=== PATIENT | female | born 1955 | race Caucasian/White ===

== ENCOUNTER 2024-05-21 21:32 | Emergency (ER) | payer MEDICARE, SELFPAY ==
[2024-05-21 21:33] VITALS: BMI 23.4
[2024-05-21 21:36] VITALS: BP 167/94
[2024-05-21 22:03] LABS: % Basophils 0.4 % (0-2); % Eosinophils 0.4 % (0-6); % Immature Granulocytes 0.1 % (0-0.5); % Lymphocytes 33.3 % (20.5-51.1); % Monocytes 9.6 % (1.7-9.3); % Neutrophils 56.2 % (42.2-75.2); Absolute Lymphocytes 2.3 10^3/uL (1.2-3.4); Absolute Monocytes 0.7 10^3/uL (0.1-0.6); Absolute Neutrophils 3.9 10^3/uL (1.4-6.5); Hematocrit 41.2 % (37.0-47.0); Hemoglobin 14.4 g/dL (12.0-16.0); Mean Corpuscular Hgb 31.3 pg (27.0-31.0); Mean Corpuscular Volume 89.6 fL (81.0-99.0); Mean Platelet Volume 10.3 fL (7.4-10.4); Nucleated Red Blood Cells % 0 %; Platelet Count 199 10^3/uL (130-400); Red Cell Dist. Width 11.8 % (11.5-14.5); White Blood Cell Count 6.9 10^3/uL (4.8-10.8)
[2024-05-21 22:25] LABS: ALT (SGPT) 65 U/L (0-35); AST (SGOT) 36 U/L (14-36); Albumin 4.6 g/dl (3.5-5.0); Alkaline Phosphatase 80 U/L (38-126); Blood Urea Nitrogen 14 mg/dl (7-17); Calcium 10.5 mg/dl (8.4-10.2); Carbon Dioxide 28 mmol/L (22-30); Chloride 104 mmol/L (98-107); Glucose 112 mg/dl (70-99); Potassium 3.9 mmol/L (3.5-5.1); Sodium 139 mmol/L (135-145); Total Bilirubin 0.6 mg/dl (0.2-1.3); Total Protein 7.5 g/dl (6.3-8.2); Troponin I < 0.012 ng/ml; eGFR 55.07
[2024-05-21 23:49] VITALS: BP 178/110
[2024-05-22] VITALS: BP 185/79
[2024-05-22] MEDS: TYLENOL 1000 MG PO (00:34)
[2024-05-22] MEDS: NSS 1000 IV (00:49)
[2024-05-22 01:00] VITALS: BP 165/76
--- NOTE | 2024-05-22 01:20 | ED.GENMED ---
History of Present Illness
General
Chief Complaint: Dizziness
Source: patient and family
Exam Limitations: none
Time Seen by Provider: 05/21/24 23:51
History of Present Illness
History of Present Illness:
Sick 8-year-old female who states she woke up early this morning to go to bathroom and felt a little bit off. She went to the bathroom and on her way back continue to feel little bit dizzy. She had had a headache and some neck pain which is not
terribly uncharacteristic for her. She states that she kind of walked around trying to feel better. She woke up her daughter. Her daughter states that she then took a dose of Tylenol. She did note a headache. She states that she does
occasionally get headache and neck pain and was not sure if the symptoms are related. She states she felt like she was on the boat and had a sense of movement. Denies full room spinning. No nausea or vomiting. No recent neck injury. No recent
chiropractic work. Currently feels much less dizzy but still has a little bit of neck pain and headache. Admits that she is very fearful of hospitals due to past traumatic experience.
Past History
Past History
ED Past Medical History: Other (GERD, irritable bowel syndrome, thyroid nodules, anxiety, mitral prolapse)
ED Past Surgical History: Cholecystectomy and
Social History
Tobacco: Non-smoker
Phy Exam
Physical Exam
Physical Exam:
CONSTITUTIONAL Patient alert and oriented to person, place and time. Well-appearing. Vital signs reviewed.
HEAD atraumatic, normocephalic.
EYES eyelids normal to inspection, Extraocular muscles intact, Conjunctiva normal, Sclera normal.
NECK normal range of motion, Trachea midline, no jugular venous distention.
RESPIRATORY CHEST No respiratory distress noted, Chest expansion equal, Bilateral breath sounds clear.
CARDIOVASCULAR regular rate and rhythm, Heart sounds normal.
ABDOMEN abdomen nontender, Bowel sounds normal. No distention.
BACK normal inspection, no obvious deformities
UPPER EXTREMITY range of motion normal, Motor strength normal, no cyanosis, no edema.
LOWER EXTREMITY range of motion normal, Motor strength normal, no cyanosis, no edema.
NEURO Speech normal, No focal motor deficits, Jose coma scale 15, Memory normal, Cranial Nerves intact to screening exam. Normal [id number], normal [id number]
SKIN skin warm, dry, and normal in color.
Course
Orders/Labs/Results
Orders:
Orders
05/21/24 21:36
Electrocardiogram (*1) Urgent
Reason for Study: Chest Pain
EKG- Treatment ONCE
05/21/24 21:47
EKG [Electrocardiogram (*1)] Urgent
Reason for Study: Chest Pain
05/21/24 21:48
EKG- Treatment ONCE
05/21/24 21:56
Complete Blood Count/With Diff Urgent
Comprehensive Metabolic Panel Urgent
Troponin I Urgent
05/22/24 00:28
0.9% Sodium Chloride 1000 ml [Nss] 1,000 ml IV BOLUS
Acetaminophen [Tylenol] 1,000 mg PO NOW STA
05/22/24 00:58
CT Head W/o Iv Contrast Urgent
Comment:
Reason For Exam: dizziness, HTN
Abnormal Lab Results
05/21/24
21:56
MCH 31.3 H pg
(27.0-31.0)
Absolute Monos (auto) 0.7 H 10^3/uL
(0.1-0.6)
Monocytes % 9.6 H %
(1.7-9.3)
Creatinine 1.1 H mg/dL
(0.6-1.0)
Glucose 112 H mg/dl
(70-99)
Calcium 10.5 H mg/dl
(8.4-10.2)
ALT 65 H U/L
(0-35)
05/21/24 21:56
05/21/24 21:56
Vital Signs
Initial and Last Documented VS:
Initial Vital Signs
Temp Pulse Resp BP Pulse Ox
98 F 86 16 167/94 98
05/21/24 21:36 05/21/24 21:36 05/21/24 21:36 05/21/24 21:36 05/21/24 21:36
Last Documented Vital Signs
Temp Pulse Resp BP Pulse Ox
98 F 86 16 165/76 98
05/21/24 21:36 05/21/24 21:36 05/21/24 21:36 05/22/24 01:00 05/22/24 01:00
MDM/Problems Addressed
Differential Diagnosis Includes:
Benign positional vertigo, vestibular neuritis, vestibular migraine, central vertigo, electrolyte disturbance, CVA, vertebral dissection
MDM/Problems Addressed:
Dizziness, hypertension
*Radiology
Radiology exam reviewed: preliminary read by ED provider (No obvious intracranial hemorrhage)
*Pulse Oximetry
Patient hypoxic: no
*EKG
Interpreted by ED Provider?: Yes
Interpretation: normal
Rate: normal
Darrow: normal axis
Interval: normal interval
Ischemia: no ischemia
*Kitchen Runner Interpretation
Rate: normal
Interpretation: normal
Rhythm: sinus
*Critical Care Note
Total Time (30-74mins, 75-104mins- exclusive of procedures): Not Applicable
Data Reviewed
Source: patient and family
Further Testing Considered But Not Given:
considered CTA to r/o dissection and vascular pathology but pt refuses CTA
Patient Management
Escalation/DeEscalation of care consider admission/obs:
Patient appears well. Patient refused CTA. Her neurologic assessment is normal and she does feel better. Okay for discharge and outpatient follow-up. Neurologically she is intact. No significant risk for dissection but is little hypertensive.
Patient will return for any progressive numbness
ED Attending Note
-
Portions of this chart may have been created with voice recognition software.� Occasional wrong word or��sound alike� substitutions may have occurred due to the inherent limitations of voice recognition software.
Discharge Plan
Departure
Patient Disposition: Home (Routine Discharge)
Date of Disposition: 05/22/24
Time of Disposition: 01:50
Patient with high blood pressure during this ER visit?: Yes
Discharge Problem:
Vertigo
Instructions: Vertigo (a Type of Dizziness) (DC), BLOOD PRESSURE
Referrals:
NONE,* [Family Provider] -
Activity Restrictions/Additional Instructions:
Please see your doctor in the next 2 to 3 days for follow-up and reevaluation. Return immediately for worsening symptoms, difficulty walking, weakness of any kind, speech changes, vision changes, or any other concerns.
Your blood pressure was elevated while in the Emergency Department, please have your doctor re-evaluate it in the next 48 hours as untreated hypertension may lead to serious complications.
Interventions
Interventions:
*Risk Screen - Suicide Last Done: 05/21/24 21:36
*General Assessment Last Done: 05/22/24 00:00
*Neglect/Abuse Screening Last Done: 05/21/24 21:36
*ED COVID-19 Vaccine History Last Done: 05/22/24 00:00
ED- Neurological Assessment Last Done: 05/22/24 00:00
ED Swallowing Screen Last Done: 05/22/24 00:00
Discharge Date and Time
Print Language: HUNGARIAN
[2024-05-22 02:00] VITALS: BP 165/72
== END 2024-05-22 02:29 | disposition home or self-care (01) ==
LOC: EMR 21:32
PROVIDERS: EMERGENCY PHYSICIAN Emergency Medicine
DX: R42 Dizziness and giddiness (principal); R51.9 Headache, unspecified; K21.9 Gastro-esophageal reflux disease without esophagitis; K58.9 Irritable bowel syndrome, unspecified; I10 Essential (primary) hypertension; I34.1 Nonrheumatic mitral (valve) prolapse; Z90.49 Acquired absence of other specified parts of digestive tract
CPT/HCPCS: 99284; 96360; 70450; 80053; 84484; 85025; 93005

== ENCOUNTER 2024-07-20 11:22 | Emergency (ER) | payer MEDICARE, OTHER, SELFPAY ==
[2024-07-20 11:26] VITALS: BP 154/92
--- NOTE | 2024-07-20 12:16 | ED.GENMED ---
History of Present Illness
General
Chief Complaint: Abdominal Pain
Time Seen by Provider: 07/20/24 11:52
History of Present Illness
History of Present Illness:
Patient presents to the emergency department with epigastric abdominal pain. Symptoms started last night. Associated with multiple episodes of loose stool. No fevers or chills. Denies urinary symptoms. Denies bloody stools. denies cp or sob
Past History
Past History
ED Past Medical History: Other (GERD, irritable bowel syndrome, thyroid nodules, anxiety, mitral prolapse)
ED Past Surgical History: Cholecystectomy and
Social History
Tobacco: Non-smoker
Phy Exam
Physical Exam
Physical Exam:
GENERAL APPEARANCE: NAD, well developed/ well nourished
EYES lids/conjunctiva normal
EARS/NOSE/THROAT Mucous membranes moist, uvula midline without oral pharyngeal erythema, exudate or swelling
HEAD/NECK normocephalic atraumatic, neck is supple.
RESPIRATORY respiratory effort normal, speaks in full sentences, no accessory muscle use. Lungs clear to auscultation without rhonchi, wheezes, rales
CARDIAC Regular rate and rhythm, no edema.
ABDOMINAL prior cholecystectomy scar in right upper quadrant noted. There is no hernias. Tender in the epigastric region. Soft and nondistended
MUSCLES/EXTREMITIES No abnormal range of motion, no swelling.
SKIN Warm, pink and dry. No rashes
NEUROLOGICAL Speech is clear and appropriate. Normal level of consciousness. 5/5 strength in all extremities.
PSYCH Normal mood and affect. Judgement/competence is appropriate
Course
Orders/Labs/Results
Orders:
Orders
07/20/24 12:06
Urinalysis Reflex To Culture Urgent
Date Specimen was Collected: 07/20/24
Time Specimen was Collected: 11:37
Urine Microscopic Reflex Cult Urgent
Urine Culture Urgent
JUAN Source: U
Specimen Description:
Date Specimen was Collected: 07/20/24
Time Specimen was Collected: 11:37
07/20/24 12:16
Electrocardiogram (*1) Stat
Reason for Study: Abdominal Pain
CT Abd/pel Without Iv Or Oral Urgent
Comment:
Reason For Exam: severe epigastric pain, hx of cholecystectomy
07/20/24 12:50
Complete Blood Count/With Diff Urgent
Comprehensive Metabolic Panel Urgent
Lipase Urgent
Troponin I Urgent
Abnormal Lab Results
07/20/24 07/20/24
12:06 12:50
RBC 3.88 L 10^6/uL
(4.20-5.40)
Hct 35.9 L %
(37.0-47.0)
MCH 32.2 H pg
(27.0-31.0)
Absolute Neuts (auto) 9.4 H 10^3/uL
(1.4-6.5)
Absolute Lymphs (auto) 0.8 L 10^3/uL
(1.2-3.4)
Neutrophils % 87.4 H %
(42.2-75.2)
Lymphocytes % 7.1 L %
(20.5-51.1)
Glucose 112 H mg/dl
(70-99)
Leukocyte Esterase Rfl 1+ A
(Negative)
07/20/24 12:50
07/20/24 12:50
Vital Signs
Initial and Last Documented VS:
Initial Vital Signs
Temp Pulse Resp BP Pulse Ox
98.4 F 93 18 154/92 97
07/20/24 11:26 07/20/24 11:26 07/20/24 11:26 07/20/24 11:26 07/20/24 11:26
Last Documented Vital Signs
Temp Pulse Resp BP Pulse Ox
98.4 F 88 16 138/72 98
07/20/24 11:26 07/20/24 15:41 07/20/24 15:41 07/20/24 15:41 07/20/24 15:41
*Critical Care Note
Total Time (30-74mins, 75-104mins- exclusive of procedures): Not Applicable
ED Attending Note
ED Attending Note
ED Attending Note:
patient with centralized/r sided abdominal pain since last night. Non toxic in appearance. Differential includes pancreatitis, gastritis, appendicits, gastroenteritis. Plan for labs, CT ab/pelvis
uncomplicated diverticulitis
patient with numerous allergies unable to tolerate penicillins/cephalosporins/sulfa/quinolones
will discharge with flagyl, recommendations to follow up with GI as soon as possible
-
Portions of this chart may have been created with voice recognition software.� Occasional wrong word or��sound alike� substitutions may have occurred due to the inherent limitations of voice recognition software.
Discharge Plan
Departure
Patient Disposition: Home (Routine Discharge)
Date of Disposition: 07/20/24
Time of Disposition: 14:39
Patient with high blood pressure during this ER visit?: Yes
Discharge Problem:
Diverticulitis
Instructions: Clear Liquid Diet, Diverticulitis (DC)
Prescriptions:
New
metronidazole 500 mg tablet
500 mg PO BID 10 Days Qty: 20 0RF
Referrals:
Ameena Regalado MD [Family Provider] -
Shikha Cotto DO [Active] -
Activity Restrictions/Additional Instructions:
follow up with the network cabler as soon as possible
return to the ER with new or worsening symptoms
Interventions
Interventions:
*Risk Screen - Suicide Last Done: 07/20/24 11:26
*General Assessment Last Done: 07/20/24 11:26
*Neglect/Abuse Screening Last Done: 07/20/24 11:26
*ED- Fall Risk Assessment Last Done: 07/20/24 12:53
*ED COVID-19 Vaccine History Last Done: 07/20/24 12:53
*Nursing Disposition Last Done: 07/20/24 15:41
YR-Cowulm-Xpasibwjgh Assessment Last Done: 07/20/24 12:53
Discharge Date and Time
Discharge Date/Time: 07/20/24 15:42
Print Language: KYRGYZ
[2024-07-20 12:39] LABS: Urine Albumin Negative (Neg - Trace); Urine Bilirubin Negative (Negative); Urine Character Clear (Clear); Urine Color Yellow; Urine Glucose Negative (Negative); Urine Ketone Negative (Negative); Urine Leukocyte 1+ (Negative); Urine Nitrite Negative (Negative); Urine Occult Blood Negative (Negative); Urine Urobilinogen Negative (Neg - 1+)
[2024-07-20 12:59] LABS: Urine Red Blood Cell 0-2 /HPF (0-2)
[2024-07-20 13:04] LABS: % Basophils 0.3 % (0-2); % Immature Granulocytes 0.4 % (0-0.5); % Lymphocytes 7.1 % (20.5-51.1); % Monocytes 4.8 % (1.7-9.3); % Neutrophils 87.4 % (42.2-75.2); Absolute Lymphocytes 0.8 10^3/uL (1.2-3.4); Absolute Monocytes 0.5 10^3/uL (0.1-0.6); Absolute Neutrophils 9.4 10^3/uL (1.4-6.5); Hematocrit 35.9 % (37.0-47.0); Hemoglobin 12.5 g/dL (12.0-16.0); Mean Corp Hgb Conc. 34.8 g/dL (33.0-37.0); Mean Corpuscular Hgb 32.2 pg (27.0-31.0); Mean Corpuscular Volume 92.5 fL (81.0-99.0); Mean Platelet Volume 10.1 fL (7.4-10.4); Nucleated Red Blood Cells % 0 %; Platelet Count 194 10^3/uL (130-400); Red Blood Cell Count 3.88 10^6/uL (4.20-5.40); Red Cell Dist. Width 11.9 % (11.5-14.5); White Blood Cell Count 10.8 10^3/uL (4.8-10.8)
[2024-07-20 13:12] LABS: ALT (SGPT) 17 U/L (0-35); AST (SGOT) 22 U/L (14-36); Albumin 3.9 g/dl (3.5-5.0); Alkaline Phosphatase 62 U/L (38-126); Blood Urea Nitrogen 11 mg/dl (7-17); Calcium 9.4 mg/dl (8.4-10.2); Carbon Dioxide 28 mmol/L (22-30); Chloride 104 mmol/L (98-107); Glucose 112 mg/dl (70-99); Lipase 113 U/L (23-300); Potassium 3.7 mmol/L (3.5-5.1); Sodium 138 mmol/L (135-145); Total Bilirubin 0.7 mg/dl (0.2-1.3); Total Protein 6.4 g/dl (6.3-8.2); eGFR > 60.00
[2024-07-20 13:24] LABS: Troponin I < 0.012 ng/ml
[2024-07-20 15:41] VITALS: BP 138/72
== END 2024-07-20 15:42 | disposition home or self-care (01) ==
LOC: EMR 11:22
PROVIDERS: Emergency Medicine; EMERGENCY PHYSICIAN Emergency Medicine; FAMILY PHYSICIAN Family Medicine
DX: K57.32 Diverticulitis of large intestine without perforation or abscess without bleeding (principal); Z90.49 Acquired absence of other specified parts of digestive tract
CPT/HCPCS: 99285; 74176; 80053; 81003; 81015; 83690; 84484; 85025; 87086; 93005

== ENCOUNTER 2024-07-23 20:10 | Emergency (ER) | payer MEDICARE, OTHER, SELFPAY ==
[2024-07-23 20:10] VITALS: BMI 23.5
[2024-07-23 20:12] VITALS: BP 182/83
[2024-07-23] MEDS: CARAFATE SUSPENSION 1 GM PO (21:04)
[2024-07-23 21:05] VITALS: BP 187/82
[2024-07-23 21:57] LABS: % Basophils 0.5 % (0-2); % Eosinophils 0.5 % (0-6); % Immature Granulocytes 0.2 % (0-0.5); % Lymphocytes 22.5 % (20.5-51.1); % Monocytes 7.9 % (1.7-9.3); % Neutrophils 68.4 % (42.2-75.2); Absolute Lymphocytes 1.4 10^3/uL (1.2-3.4); Absolute Monocytes 0.5 10^3/uL (0.1-0.6); Absolute Neutrophils 4.2 10^3/uL (1.4-6.5); Hematocrit 33.5 % (37.0-47.0); Hemoglobin 11.9 g/dL (12.0-16.0); Mean Corp Hgb Conc. 35.5 g/dL (33.0-37.0); Mean Corpuscular Hgb 31.9 pg (27.0-31.0); Mean Corpuscular Volume 89.8 fL (81.0-99.0); Mean Platelet Volume 10.2 fL (7.4-10.4); Nucleated Red Blood Cells % 0 %; Platelet Count 202 10^3/uL (130-400); Red Blood Cell Count 3.73 10^6/uL (4.20-5.40); Red Cell Dist. Width 11.3 % (11.5-14.5); White Blood Cell Count 6.1 10^3/uL (4.8-10.8)
[2024-07-23 22:09] LABS: ALT (SGPT) 18 U/L (0-35); AST (SGOT) 30 U/L (14-36); Albumin 3.6 g/dl (3.5-5.0); Alkaline Phosphatase 67 U/L (38-126); Blood Urea Nitrogen 8 mg/dl (7-17); Calcium 9.5 mg/dl (8.4-10.2); Carbon Dioxide 24 mmol/L (22-30); Chloride 98 mmol/L (98-107); Estimated Creatinine Clearance 77 ml/min; Glucose 97 mg/dl (70-99); Potassium 3.9 mmol/L (3.5-5.1); Sodium 132 mmol/L (135-145); Total Bilirubin 0.7 mg/dl (0.2-1.3); Total Protein 6.1 g/dl (6.3-8.2); eGFR > 60.00
[2024-07-23 22:20] LABS: Troponin I < 0.012 ng/ml
--- NOTE | 2024-07-23 22:51 | ED.GENMED ---
History of Present Illness
General
Chief Complaint: Chest Pain
Time Seen by Provider: 07/23/24 20:49
History of Present Illness
History of Present Illness:
69-year-old female presents to the emergency department for evaluation of upper abdominal discomfort chest discomfort beginning earlier this evening. She reports it feels similar to indigestion. Tried Mylanta without relief. Began almost
immediately after undergoing an examination in her primary care's office resulted in forceful abdominal palpation. No fevers or chills. No pleuritic pain. Was recently seen here for diverticulitis but is opted for clear liquids and a conservative
approach with no antibiotics
Past History
Past History
ED Past Medical History: Other (GERD, irritable bowel syndrome, thyroid nodules, anxiety, mitral prolapse)
ED Past Surgical History: Cholecystectomy and
Social History
Tobacco: Non-smoker
Review of Systems
Review of Systems
Allergies reviewed?: Yes
All Other Systems: ROS reviewed and negative except as documented in HPI and ROS
Phy Exam
Physical Exam
Physical Exam:
GEN: Well appearing, NAD, WDWN
HEENT: Oral mucosa moist, no scleral icterus
Cardiac: Regular rate
Lung: No respiratory distress, no tachypnea
Abdomen: Soft, minimal epigastric tenderness, negative Bush sign
MSK: No gross deformity or injuries
Skin: Good color, no pallor or jaundice, no rashes
Neuro: AO x3, moves all extremities freely
Psych: Calm, cooperative
Scores
Heart Score for Chest Pain Patients
STEMI patient?: No
History: Slightly or Non-Suspicious
ECG: Normal
Age: >/= 65 years
Risk Factors: No Risk Factors
Troponin: </= Normal Limit
Heart Score for Chest Pain Patients: 2
Heart Score Risk: 2.5% MACE over next 6 weeks
Course
Orders/Labs/Results
Orders:
Orders
07/23/24 20:11
EKG [Electrocardiogram (*1)] Urgent
Reason for Study: Chest Pain
EKG- Treatment ONCE
07/23/24 21:02
Sucralfate Suspension [Carafate Suspension] 1 gm PO NOW STA
07/23/24 21:50
Complete Blood Count/With Diff Urgent
Comprehensive Metabolic Panel Urgent
Troponin I Urgent
Abnormal Lab Results
07/23/24
21:50
RBC 3.73 L 10^6/uL
(4.20-5.40)
Hgb 11.9 L g/dL
(12.0-16.0)
Hct 33.5 L %
(37.0-47.0)
MCH 31.9 H pg
(27.0-31.0)
RDW 11.3 L %
(11.5-14.5)
Sodium 132 L mmol/L
(135-145)
Total Protein 6.1 L g/dl
(6.3-8.2)
07/23/24 21:50
07/23/24 21:50
Vital Signs
Initial and Last Documented VS:
Initial Vital Signs
Temp Resp BP Pulse Ox
98.2 F 20 182/83 99
07/23/24 20:12 07/23/24 20:12 07/23/24 20:12 07/23/24 20:12
Last Documented Vital Signs
Temp Pulse Resp BP Pulse Ox
98.2 F 81 25 187/82 98
07/23/24 20:12 07/23/24 22:15 07/23/24 22:15 07/23/24 21:05 07/23/24 22:15
MDM/Problems Addressed
MDM/Problems Addressed:
Labs reassuring, patient declined PPI and H2 raul in the ED, educated on supportive care, most likely GERD/acid reflux
*Critical Care Note
Total Time (30-74mins, 75-104mins- exclusive of procedures): Not Applicable
ED Attending Note
-
Portions of this chart may have been created with voice recognition software.� Occasional wrong word or��sound alike� substitutions may have occurred due to the inherent limitations of voice recognition software.
Discharge Plan
Departure
Patient Disposition: Home (Routine Discharge)
Date of Disposition: 07/23/24
Time of Disposition: 22:52
Patient with high blood pressure during this ER visit?: No
Discharge Problem:
Chest pain due to GERD
Instructions: Acid reflux and GERD in adults
Prescriptions:
No Action
metronidazole 500 mg tablet
500 mg PO BID 10 Days Qty: 20 0RF
Referrals:
Ameena Regalado MD [Family Provider] -
Interventions
Interventions:
*Risk Screen - Suicide Last Done: 07/23/24 21:02
*General Assessment Last Done: 07/23/24 20:12
*Neglect/Abuse Screening Last Done: 07/23/24 21:02
*ED- Fall Risk Assessment Last Done: 07/23/24 21:02
ED- Cardiac Assessment Last Done: 07/23/24 21:09
Discharge Date and Time
Print Language: GAMBIAN
== END 2024-07-23 22:56 | disposition home or self-care (01) ==
LOC: EMR 20:10
PROVIDERS: Physician Assistant; EMERGENCY PHYSICIAN Emergency Medicine; FAMILY PHYSICIAN Family Medicine
DX: R07.89 Other chest pain (principal); K21.9 Gastro-esophageal reflux disease without esophagitis; K58.9 Irritable bowel syndrome, unspecified; E04.1 Nontoxic single thyroid nodule; F41.9 Anxiety disorder, unspecified; I34.1 Nonrheumatic mitral (valve) prolapse; Z90.49 Acquired absence of other specified parts of digestive tract
CPT/HCPCS: 99283; 80053; 84484; 85025; 93005

== ENCOUNTER → 2024-08-08 09:14 | Outpatient (REF) | payer MEDICARE, OTHER, SELFPAY | LOC: RCS 09:14 | PROVIDERS: ATTENDING PHYSICIAN Family Medicine; REFERRING PHYSICIAN Internal Medicine Cardiovascular Disease | DX: R00.2 Palpitations (principal) | CPT/HCPCS: 93225; 93226; 93306 ==

== ENCOUNTER 2024-08-12 17:50 | Outpatient (RCR) | payer MEDICARE, OTHER, SELFPAY | END 2024-08-12 23:59 | disposition home or self-care (01) | LOC: ROT 17:50 | PROVIDERS: ATTENDING PHYSICIAN Physician Assistant Surgical; FAMILY PHYSICIAN Family Medicine | DX: S69.92XD Unspecified injury of left wrist, hand and finger(s), subsequent encounter (principal); Z73.6 Limitation of activities due to disability; X58.XXXD Exposure to other specified factors, subsequent encounter | CPT/HCPCS: 97018; 97110; 97166; 97535 ==

== ENCOUNTER → 2024-08-15 09:43 | Outpatient (REF) | payer MEDICARE, OTHER, SELFPAY | LOC: HWRAD 09:43 | PROVIDERS: ATTENDING PHYSICIAN Internal Medicine Gastroenterology; FAMILY PHYSICIAN Family Medicine | DX: R10.13 Epigastric pain (principal) | CPT/HCPCS: 76700 ==

== ENCOUNTER 2024-09-09 17:52 | Outpatient (RCR) | payer MEDICARE, OTHER, SELFPAY | END 2024-09-09 23:59 | disposition home or self-care (01) | LOC: ROT 17:52 | PROVIDERS: ATTENDING PHYSICIAN Physician Assistant Surgical; FAMILY PHYSICIAN Family Medicine | DX: S69.92XD Unspecified injury of left wrist, hand and finger(s), subsequent encounter (principal); Z73.6 Limitation of activities due to disability; X58.XXXD Exposure to other specified factors, subsequent encounter | CPT/HCPCS: 97018; 97110; 97140 ==

== ENCOUNTER 2024-09-23 17:38 | Outpatient (RCR) | payer MEDICARE, OTHER, SELFPAY | END 2024-09-23 23:59 | disposition home or self-care (01) | LOC: ROT 17:38 | PROVIDERS: ATTENDING PHYSICIAN Physician Assistant Surgical; FAMILY PHYSICIAN Family Medicine | DX: S69.92XD Unspecified injury of left wrist, hand and finger(s), subsequent encounter (principal); Z73.6 Limitation of activities due to disability; X58.XXXD Exposure to other specified factors, subsequent encounter | CPT/HCPCS: 97018; 97110 ==

== ENCOUNTER → 2024-10-07 10:01 | Outpatient (REF) | payer MEDICARE, OTHER, SELFPAY | LOC: RAD 10:01 | PROVIDERS: ATTENDING PHYSICIAN Internal Medicine Gastroenterology; FAMILY PHYSICIAN Family Medicine | DX: R10.13 Epigastric pain (principal); Z87.19 Personal history of other diseases of the digestive system | CPT/HCPCS: 74176 ==

== ENCOUNTER 2024-10-14 17:45 | Outpatient (RCR) | payer MEDICARE, OTHER, SELFPAY | END 2024-10-14 23:59 | disposition home or self-care (01) | LOC: ROT 17:45 | PROVIDERS: ATTENDING PHYSICIAN Physician Assistant Surgical; FAMILY PHYSICIAN Family Medicine | DX: S69.92XD Unspecified injury of left wrist, hand and finger(s), subsequent encounter (principal); Z73.6 Limitation of activities due to disability; X58.XXXD Exposure to other specified factors, subsequent encounter | CPT/HCPCS: 97018; 97110; 97140 ==